=== PATIENT | female | born 1970 | race Caucasian/White ===

== ENCOUNTER 2020-01-15 21:02 | Emergency (ER) | payer BC ==
[2020-01-15] MEDS ORDERED: HYDROmorphone 1 MG/ML Syringe IVPUSH ONE (21:12)
[2020-01-15] MEDS ORDERED: Ondansetron 4 MG/2 ML SDV IVPUSH ONE (21:12)
--- NOTE | 2020-01-15 21:15 | EDM.PDOC ---
ED HPI GENERAL MEDICAL PROBLEM - General Chief Complaint: Trauma Stated Complaint: FELL OFF HORSE/LEFT SIDE INJURY Time Seen by Provider: 01/15/20 21:11 Source of Information: Reports: Patient History Limitations: Reports: No Limitations - History of Present Illness INITIAL COMMENTS - FREE TEXT/NARRATIVE: A trauma alert was called for this patient. Mrs. Rose is a very pleasant 49-year-old woman who is now brought to the ED via private vehicle after falling off of a horse. She states that she was [place] riding, when a cow came out of the bushes, spoking her horse, causing it to run. She states that she got banged around on the back of the horse before falling off, around 21:00 tonight. She was not wearing a helmet. She states that her head struck the horses buttocks, but not the ground, and she was not knocked unconscious. She is complaining of left shoulder pain, and monitor coccyx pain. She denies any other injuries. She did not take any xefx-qms-ozvkyme or home remedies prior to coming to the ED. Here in the ED, the patient's initial BP is found to be mildly elevated at 147/98, otherwise, she is hemodynamically stable, afebrile, saturating 98% on room air. Other than josie's left shoulder injury, the patient denies having a recent fever, chills, sore throat, ear pain, nasal or sinus congestion, cough, dyspnea, chest pain, palpitations, nausea, vomiting, constipation, diarrhea, abdominal pain, urinary symptoms, recent weight gain or weight loss, recent bloody bowel movements or black bowel movements, recent joint aches, headaches, or rashes. The patient's PCP is Ann Santizo at [facility]. Left Shoulder Pain Score (Numeric/FACES): 10 - Related Data Allergies Allergy/AdvReac Type Severity Reaction Status Date / Time No Known Allergies Allergy Verified 01/15/20 21:14 Home Meds: Home Meds Acetaminophen/HYDROcodone [K[place]ua 325-5 MG] 1 - 2 tab PO Q6H PRN #10 tablet 01/15/20 [Rx] Past Medical History Cardiovascular History: Reports: Hypertension Endocrine/Metabolic History: Reports: Diabetes, Type II, Obesity/BMI 30+ - Past Surgical History HEENT Surgical History: Reports: Oral Surgery (wisdom teeth extraction), To nsillectomy GI Surgical History: Reports: Appendectomy, Cholecystectomy (1997) Female Surgical History: Reports: D&C (x 2), Hysterectomy (partial), Tubal Ligation Musculoskeletal Surgical History: Reports: Arthroscopic Procedure (left hip) Social & Family History - Tobacco Use Smoking Status *Q: Former Smoker Years of Tobacco use: 14 Packs/Tins Daily: 1 Month/Year Tobacco Last Used: Quit around 1998 - Alcohol Use Alcohol Use History: Yes Alcohol Use Frequency: Socially - Recreational Drug Use Recreational Drug Use: No - Living Situation & Occupation Living situation: Reports: , with Spouse Occupation: Employed (Accounts receivable) Review of Systems - Review of Systems Review Of Systems: Comprehensive ROS is negative, except as noted in HPI. ED EXAM, GENERAL - Physical Exam Exam: See Below Exam Limited By: No Limitations General Appearance: Alert, WD/WN, Mild Distress (appears uncomfortable) Eye Exam: Bilateral Eye: EOMI, Normal Inspection Ears: Normal External Exam, Hearing Grossly Normal Nose: Normal Inspection Throat/Mouth: Normal Inspection, Normal Lips, Normal Voice, No Airway Compromise Head: Atraumatic, Normocephalic Neck: Normal Inspection, Supple, Non-Tender, Full Range of Motion Respiratory/Chest: No Respiratory Distress, Lungs Clear, Normal Breath Sounds, No Accessory Muscle Use Cardiovascular: Normal Peripheral Pulses, Regular Rate, Rhythm, No Edema, No Gallop, No JVD, No Murmur, No Rub Peripheral Pulses: 3+: Radial (L), Radial (R) GI/Abdominal: Normal Bowel Sounds, Soft, Non-Tender, No Organomegaly, No Distention, No Abnormal Bruit, No Mass (Female) Exam: Deferred Rectal (Female) Exam: Deferred Back Exam: Normal Inspection, Full Range of Motion, NT Extremities: No Pedal Edema, Normal Capillary Refill, Other (Small erythematous abrasion to the lateral aspect of the patient's left shoulder, otherwise, no visible abnormality, such as swelling, erythema, or ecchymosis. Patient is reluctant to move her shoulder, keeping her left upper extremity close to her body. She reports tenderness to all sides of her left shoulder. Neurovascular status of her left upper extremity is intact.) Neurological: Alert, Oriented, Normal Cognition, No Motor/Sensory Deficits Psychiatric: Normal Affect Skin Exam: Warm, Dry, Intact, Normal Color, No Rash Course - Vital Signs Last Recorded V/S: Last Vital Signs Temp 36.7 C 01/15/20 21:11 Pulse 80 01/15/20 21:11 Resp 20 01/15/20 21:11 BP 147/98 H 01/15/20 21:11 Pulse Ox 98 01/15/20 21:11 - Orders/Labs/Meds Orders: Active Orders 24 hr Category Date Time Status Shoulder Comp Lt [CR] Stat Exams 01/15/20 21:11 Taken DME for Discharge [COMM] Stat Oth 01/15/20 22:20 Ordered Meds: Medications Discontinued Medications Generic Name Dose Route Start Last Admin Trade Name Kike PRN Reason Stop Dose Admin Hydromorphone HCl 1 mg 01/15/20 21:12 01/15/20 21:18 Dilaudid IVPUSH 01/15/20 21:13 1 mg ONETIME ONE Administration Ibuprofen 600 mg 01/15/20 22:21 01/15/20 22:31 Motrin PO 01/15/20 22:22 600 mg ONETIME ONE Administration Ondansetron HCl 4 mg 01/15/20 21:12 01/15/20 21:18 Zofran IVPUSH 01/15/20 21:13 4 mg ONETIME ONE Administration - Re-Assessments/Exams Free Text/Narrative Re-Assessment/Exam: 01/15/20 21:14 As above, the patient states that she fell off a spooked horse, suffering a left shoulder injury. I have ordered x-rays of the left shoulder, and in the meantime, the patient will be given IV Dilaudid and IV Zofran. 01/15/20 22:09 4-view radiographs of the left shoulder appear to be normal, with no fracture or dislocation identified. Formal read per the Radiologist pending. 01/15/20 22:19 X-ray results discussed with the patient. She appears to have strained or contused her left shoulder. She will be placed into a left shoulder sling and given ibuprofen before being discharged home with a prescription for K[place]ua. I would like her to take josv-pyf-gmnumhq ibuprofen alrxrk-dqk-juuce, and ice her shoulder is much as possible for the next 2 to 3 days. She should begin PROM in 2 days, but if her shoulder does not significantly improve within the next few days, she should follow-up with her orthopedic surgeon at [facility]. Departure - Departure Time of Disposition: 22:22 Disposition: Home, Self-Care 01 Condition: Good Clinical Impression: Fall from horse, Injury of left shoulder - Discharge Information *PRESCRIPTION DRUG MONITORING PROGRAM REVIEWED*: Not Applicable *COPY OF PRESCRIPTION DRUG MONITORING REPORT IN PATIENT PADMA: Not Applicable Prescriptions: Acetaminophen/HYDROcodone [[place] 325-5 MG] 1 - 2 tab PO Q6H PRN #10 tablet PRN Reason: Pain (Severe 7-10) Referrals: PCP,Not In Area [Primary Care Provider] - David Nix MD [Ordering Only Provider] - Forms: ED Department Discharge Additional Instructions: You were seen in the emergency room after falling off of a horse, injuring your left shoulder. Work-up in the ER included x-rays of your left shoulder, which returned unremarkable. No broken bones or dislocations were seen. Based on your history, physical exam, and ER x-rays, you have most likely strained or contused your left shoulder. Your left shoulder has been placed into a shoulder sling. We recommend that you ice your left shoulder is much as possible over the next 2 to 3 days. We recommend that you take uwse-dwm-dnpryew ibuprofen, 3 tablets (600 mg) every 8 hours, ixniyv-ytt-djuqa, for the next several days. You may take 1 to 2 tablets of the narcotic pain reliever K[place]ua up to every 6 hours, as needed for pain not relieved by ibuprofen. If you take Kailua, do not drive or operate heavy machinery for 12 hours afterwards. Kailua may cause constipation, so consider taking a stool softener. After 2 days, we recommend that you start performing passive range of motion of your left shoulder. If your left shoulder has not significantly improved after a few days, we recommend that you follow-up with your Orthopedic Surgeon, Dr. David Nix, at [facility], for further evaluation. If any other problems, please do not hesitate to return to the ER. Sepsis Event Note (ED) - Evaluation Sepsis Screening Result: No Definite Risk - Focused Exam Vital Signs: Vital Signs Temp Pulse Resp BP Pulse Ox 01/15/20 21:11 36.7 C 80 20 147/98 H 98 - My Orders Last 24 Hours: My Active Orders 01/15/20 21:11 Shoulder Comp Lt [CR] Stat 09/05/20 22:20 DME for Discharge [COMM] Stat - Assessment/Plan Last 24 Hours: My Active Orders 01/15/20 21:11 Shoulder Comp Lt [CR] Stat 01/15/20 22:20 DME for Discharge [COMM] Stat
[2020-01-15] MEDS ORDERED: Ibuprofen 600 MG Tab PO ONE (22:21)
--- NOTE | 2020-01-17 11:03 | CR ---
Left shoulder: 3 views left shoulder were obtained. Comparison: No prior shoulder study. Calcification is seen off the inferior glenoid most likely dystrophic from old injury. Minimal calcification compatible with calcific tendinitis is seen. No acute fracture or dislocation is seen. Impression: 1. Slight calcific tendinitis. 2. Dystrophic calcification of the inferior glenoid as described above. 3. No acute abnormality is appreciated on left shoulder study. Diagnostic code #2 This report was dictated in MDT
== END 2020-01-15 22:35 | disposition home or self-care (01) ==
LOC: JD.ED 21:02
DX: S40.212A Abrasion of left shoulder, initial encounter (principal); I10 Essential (primary) hypertension; E11.9 Type 2 diabetes mellitus without complications; E66.9 Obesity, unspecified; Z68.32 Body mass index [BMI] 32.0-32.9, adult; Z87.891 Personal history of nicotine dependence; V80.010A Animal-rider injured by fall from or being thrown from horse in noncollision accident, initial encounter; Y93.52 Activity, horseback riding
CPT/HCPCS: 73030; 96374; 96375; 99283; A9270; J1170; J2405